=== PATIENT | male | born 1995 | race Caucasian/White ===

== ENCOUNTER 2024-06-27 15:18 | Emergency (ER) | payer BC, SELFPAY ==
[2024-06-27 15:23] VITALS: BP 142/86; RESP 16; TEMP 36.9; O2SAT 98; BMI 39.1
--- NOTE | 2024-06-27 16:45 | CRLHL7_ITS ---
For Patients: As a result of the Century Cures Act, medical imaging exams and procedure reports are released immediately into your electronic medical record. You may view this report before your referring provider. If you have questions, please contact your health care provider. INDICATION: LIGHTHEADED, FALL. TECHNIQUE: CT head without contrast. COMPARISON: None. FINDINGS: CSF spaces: Within normal limits for age. Brain parenchyma and extra-axial spaces: The lynn-white differentiation is normal. No sign of mass, hemorrhage, or midline shift. No extra-axial fluid collection. Skull base and calvarium: The visualized paranasal sinuses and mastoid air cells demonstrate no acute or significant findings. The visualized orbits are grossly unremarkable. No skull fractures. IMPRESSION: Unremarkable noncontrast head CT. Please note that all CT scans at this facility use dose modulation, iterative reconstruction, and/or weight-based dosing when appropriate to reduce radiation dose to as low as reasonably achievable. Dictated by Sanford Zaman MD @ 06/27/2024 5:45:17 PM (Electronically Signed)
--- NOTE | 2024-06-27 17:05 | ED_ITS ---
HPI - Syncope General Date Seen: 06/27/24 Chief Complaint: Dizziness/Vertigo Stated Complaint: fainted on Monday, light headed Time Seen by Provider: 06/27/24 16:25 Source: patient Mode of arrival: ambulatory Limitations: no limitations History of Present Illness HPI narrative: Patient is a 28-year-old male presenting to the emergency department for lightheadedness. He states 2 days ago he became lightheaded after getting out of bed. States at symptoms right away when he got up but did go to the bathroom and stood up while urinating. At that point he was getting tunnel vision and t hen he believes he lowered himself to the floor but I cannot say for sure but does state he feels like he passed out for a very short amount of time. This entire episode lasted about 35 seconds. He then was not feeling well the rest of the day. Since then symptoms have been improving but did have another episode yesterday where he felt like he was going to pass out but did not. Symptoms again are improving today compared to yesterday. Does states symptoms are better when he is lying down compared to sitting or standing. Denies ever having symptoms like this before. Has no associated shortness of breath. Has some mild chest discomfort he states he eats mostly from anxiety because he is concerned about this episode and what is going on. Denies any history of cardiac issues in himself for immediate family. Denies any leg swelling, hemoptysis, recent surgery or trauma, hormone use, previous blood clots. Has no associated abdominal pain, nausea/vomiting, fevers, chills, sick contacts, diarrhea, constipation, dysuria, vision changes, headache. Based on his description does sound more like lightheadedness that he is feeling at this time rather than dizziness. I did specifically ask if he room is spinning or feels like he has had about and he states no. Does states he was pretty dehydrated the for stated occurred but has been drinking a lot of fluids with a past few days. Related Data Home Medications ?Medication ?Instructions ?Recorded ?Confirmed famotidine 20 mg tablet (Acid 20 mg PO DAILY 06/27/24 06/27/24 Controller) fexofenadine 60 mg tablet (Coty 60 mg PO Q12H 06/27/24 06/27/24 Allergy) Allergies Allergy/AdvReac Type Severity Reaction Status Date / Time No Known Drug Allergies Allergy Verified 06/27/24 15:30 Review of Systems Status of ROS: Reports: 10 or more systems reviewed and unremarkable except as noted in History and below PFSH PFSH Social History Smoking Status: Current every day smoker Do you use any of these nicotine containing products: Vaping Products How often do you have a drink containing alcohol: 2-3 times a week How many standard drinks containing alcohol do you have on a typical day: 1 or 2 How often do you have six or more drinks on one occasion: Never AUDIT-C Alcohol total score: 3 Non-prescribed substance use: denies use Exam Narrative: Exam Narrative: Const: Well-nourished, Well-developed, in mild distress Eyes: PERRL, no conjunctival injection, and symmetrical lids HENT: Atraumatic external nose and ears. Moist mucous membranes. Neck: Symmetric, trachea midline, No thyromegaly. CVS: RRR, No murmurs or gallops. Peripheral pulses 2+ and equal in all extremities RESP: Unlabored respiratory effort. Clear to auscultation bilaterally. GI: Nontender/Nondistended, No rebound or guarding. MSK:Extremities w/o deformity, Normal Active ROM Skin: Warm, Dry. No rashes or lesions. Neuro: Normal Muscle tone, No focal neurological deficits. Psych: Awake, Alert, & Oriented x3. Appropriate mood and affect. Const: Vital Signs, click to edit/add: Vital Signs - 24 hr 06/27/24 15:23 06/27/24 18:02 Temperature 98.5 F Pulse Rate [orthos tatic lying] 69 Pulse Rate [orthos tatic sitting] 85 Pulse Rate [orthos tatic standing] 82 Respiratory Rate 16 Blood Pressure [Ri ght Upper Arm] 142/86 H Blood Pressure [or thostatic lying] 142/93 H Blood Pressure [or thostatic sitting] 140/88 H Blood Pressure [or thostatic standing ] 133/92 H Pulse Oximetry 98 Oxygen Delivery Me thod Room Air Course Vital Signs Vital signs: Initial Vital Signs Temperature 98.5 F 06/27/24 15:23 Temperature Source Temporal Artery Scan 06/27/24 15:23 Respiratory Rate 16 06/27/24 15:23 Blood Pressure 142/86 H 06/27/24 15:23 Blood Pressure Mean 104 06/27/24 15:23 Blood Pressure Position Sitting 06/27/24 15:23 Pulse Oximetry 98 06/27/24 15:23 Oxygen Delivery Method Room Air 06/27/24 15:23 Vital Signs Temperature 98.5 F 06/27/24 15:23 Respiratory Rate 16 06/27/24 15:23 Blood Pressure 142/86 H 06/27/24 15:23 Pulse Oximetry 98 06/27/24 15:23 Oxygen Delivery Method Room Air 06/27/24 15:23 Temperature 98.5 F 06/27/24 15:23 Pulse Rate 69 06/27/24 18:02 Respiratory Rate 16 06/27/24 15:23 Blood Pressure 142/93 H 06/27/24 18:02 Pulse Oximetry 98 06/27/24 15:23 Oxygen Delivery Method Room Air 06/27/24 15:23 Medications Administered Medications: Discontinued Medications Generic Name Dose Route Start Last Admin Trade Name Freq PRN Reason Stop Dose Admin Lactated Ringer's 1,000 mls @ 1,000 mls/hr 06/27/24 16:43 06/27/24 17:50 Lactated Ringers 1000 Ml IV 06/27/24 17:42 1,000 mls/hr .Q1H ONE Administration MDM - Syncope MDM Narrative Medical decision making narrative: Patient is a 28-year-old male presenting for what sounds like syncope. Seems unlikely to be related to dizziness based on description of his symptoms. Due to that I believe a screw currently enter cerebral cause is very unlikely but a stable do a head CT as he cannot say for certain if he hit his head a couple days ago in still symptomatic today. Make sure there are no intracranial bleeds. We will also do EKG, troponin, CBC, CMP, COVID/flu, chest x-ray. Will give a L of lactated Ringer's. Orthostatic blood pressures were done. His heart rate did go up slightly but no concerning changes to his blood pressure. Did not have any changes to symptoms when standing. Head CT and chest x-ray reviewed by myself and radiologist showed no concerning abnormalities. EKG and troponin shows no concerning findings. COVID and flu are negative. CBC and BMP showed no concerning abnormalities. He has had very mild improvement in symptoms over all since he arrived but they are still there. At this time I cannot say for certain what his symptoms are from but I do not see any emergent causes and he is safe for discharge. He is agreeable to this plan. Lab Data Labs: Lab Results 06/27/24 06/27/24 Range/Units 16:44 17:08 WBC 8.29 (4.50-11.00) K/uL RBC 5.26 (4.30-5.90) m/uL Hgb 15.8 (13.5-17.5) gm/dL Hct 46.6 (37.0-53.0) % MCV 89 (80-100) fL MCH 30 (26-34) pg MCHC 34 (32-36) gm/dL RDW Coeff of Nata 11.8 (11.5-15.5) % Plt Count 249 (140-440) K/uL Neut % (Auto) 60.5 (42.0-72.0) % Lymph % (Auto) 30.6 (20-44) % [place] % (Auto) 7.0 (0.0-11.0) % Eos % (Auto) 1.4 (0.0-7.0) % Baso % (Auto) 0.4 (0.0-3.0) % Neut # (Auto) 5.01 (1.7-7.0) K/uL Lymph # (Auto) 2.54 (0.90-2.90) K/uL [place] # (Auto) 0.60 (0.00-0.90) K/UL Eos # (Auto) 0.12 (0.00-0.50) K/uL Baso # (Auto) 0.03 (0.00-0.30) K/uL Abs Immat Gran (auto) 0.01 (0.00-0.30) K/uL Imm/Tot Granulo (auto) 0.1 % Sodium 138 (135-149) mmol/L Potassium 3.7 (3.6-5.1) mmol/L Chloride 104 (96-114) mmol/L Carbon Dioxide 23 (20-32) mmol/L Anion Gap 11 (7-15) mEq/L BUN 15 (5-24) mg/dL Creatinine 0.8 (0.5-1.5) mg/dL Estimated Creat Clear 136.24 Estimated GFR 123 ml/min Glucose 94 (60-115) mg/dL Calcium 9.6 (8.4-10.6) mg/dL Total Bilirubin 0.4 (0.1-1.5) mg/dL AST 33 (12-35) U/L ALT 56 H (4-50) U/L Alkaline Phosphatase 72 (40-150) U/L Total Protein 8.2 (6.0-8.3) g/dL Albumin 5.2 H (3.3-5.0) g/dL SARS-CoV-2 (PCR) Negative SARS-CoV-2 (Negative) Influenza Type A (PCR) Negative PCR FLU A (Negative) Influenza Type B (PCR) Negative PCR FLU B (Negative) POC Troponin I 0.00 L (0.01-0.04) ng/ml Imaging Data CT scan - head: Attestation: I have reviewed the pertinent imaging results. Radiologist's impression: Unremarkable noncontrast head CT. Please note that all CT scans at this facility use dose modulation, iterative reconstruction, and/or weight-based dosing when appropriate to reduce radiation dose to as low as reasonably achievable. Dictated by Sanford Zaman MD @ 06/27/2024 5:45:17 PM Chest x-ray: Attestation: I have reviewed the pertinent imaging results. Radiologist's impression: No acute findings. Dictated by Edward Dsouza MD @ 06/27/2024 6:22:58 PM ECG Data Attestation: I personally reviewed and interpreted this ECG as follows: Prior ECG tracings: not available for review Interpretation: Normal sinus rhythm rate 64 beats, normal intervals, normal axis, no ST or T abnormalities. Discharge Plan Discharge Clinical Impression: Pre-syncope Patient Disposition: Home, Self-Care Condition: Stable Instructions: Near Syncope (ED) Additional Instructions: Follow-up with your primary care provider symptoms persist. Make sure to stay well hydrated. Return to emergency department for new or worsening symptoms. Prescriptions: No Action fexofenadine [Coty Allergy] 60 mg tablet 60 mg PO Q12H famotidine [Acid Controller] 20 mg tablet 20 mg PO DAILY Follow Up/Referrals: Provider,Not a Local [Primary Care Provider] - Stand Alone Forms: [employer] Info Instructions
[2024-06-27 17:17] LABS: Basophils Absolute Auto 0.03 K/uL (0.00-0.30); Basophils Percent Auto 0.4 % (0.0-3.0); Eosinophils Absolute Auto 0.12 K/uL (0.00-0.50); Eosinophils Percent Auto 1.4 % (0.0-7.0); Hematocrit 46.6 % (37.0-53.0); Hemoglobin* 15.8 gm/dL (13.5-17.5); Immature Granulocytes Abs Auto 0.01 K/uL (0.00-0.30); Immature Granulocytes Pct Auto 0.1 %; Lymphocytes Absolute Auto 2.54 K/uL (0.90-2.90); Lymphocytes Percent Auto 30.6 % (20-44); Mean Corpuscular HGB Conc 34 gm/dL (32-36); Mean Corpuscular Hemoglobin 30 pg (26-34); Mean Corpuscular Volume 89 fL (80-100); Neutrophils Absolute Auto 5.01 K/uL (1.7-7.0); Neutrophils Percent Auto 60.5 % (42.0-72.0); Platelet Count* 249 K/uL (140-440); RDW Coefficient of Variation % 11.8 % (11.5-15.5); Red Blood Count 5.26 m/uL (4.30-5.90); White Blood Count* 8.29 K/uL (4.50-11.00)
[2024-06-27 17:20] LABS: Slide Review Reflex No
--- NOTE | 2024-06-27 17:30 | CRLHL7_ITS ---
For Patients: As a result of the Cures Act, medical imaging exams and procedure reports are released immediately into your electronic medical record. You may view this report before your referring provider. If you have questions, please contact your health care provider. INDICATION: Syncope. COMPARISON: None available. TECHNIQUE: 2 views. FINDINGS: Medical Devices: None. Lung Volumes: Shallow inspiration. No significant atelectasis. Lungs: Clear lungs. Pleura and Pleural spaces: No significant pleural effusion. No pneumothorax. Mediastinum: Normal cardiomediastinal silhouette. Bony Thorax and Soft Tissues: No significant incidental findings. IMPRESSION: No acute findings. Dictated by Edward Dsouza MD @ 06/27/2024 6:22:58 PM (Electronically Signed)
[2024-06-27 17:38] LABS: Albumin* 5.2 g/dL (3.3-5.0); Chloride* 104 mmol/L (96-114); Potassium* 3.7 mmol/L (3.6-5.1); Sodium* 138 mmol/L (135-149)
[2024-06-27 17:40] LABS: Creatinine* 0.8 mg/dL (0.5-1.5); Est. Creatinine Clearance* 136.24; Estimated Glomerular Filt Rate 123 ml/min
[2024-06-27 17:41] LABS: Alanine Aminotransferase* 56 U/L (4-50); Alkaline Phosphatase* 72 U/L (40-150); Anion Gap 11 mEq/L (7-15); Aspartate Amino Transferase* 33 U/L (12-35); Bilirubin Total* 0.4 mg/dL (0.1-1.5); Blood Urea Nitrogen* 15 mg/dL (5-24); Carbon Dioxide* 23 mmol/L (20-32); Glucose* 94 mg/dL (60-115); Total Protein* 8.2 g/dL (6.0-8.3)
[2024-06-27 17:42] LABS: Calcium* 9.6 mg/dL (8.4-10.6)
[2024-06-27] MEDS: LACTATED RINGERS 1000 ML 1,000 ML IV (17:50)
[2024-06-27 18:02] VITALS: BP 133/92; BP 140/88; BP 142/93; PULSE 69; PULSE 82; PULSE 85
[2024-06-27 18:23] LABS: PCR FLU A Negative PCR FLU A (Negative); PCR FLU B Negative PCR FLU B (Negative); SARS PCR* Negative SARS-CoV-2 (Negative)
== END 2024-06-27 18:42 | disposition home or self-care (01) ==
PROVIDERS: Emergency Provider Student in an Organized Health Care Education/Training Program
DX: R55 Syncope and collapse (principal)
CPT/HCPCS: 36415; 70450; 71046; 80053; 84484; 85025; 87631; 93005; 99283; 99284; J7120